=== PATIENT | male | born 1940 | race Caucasian/White ===

== ENCOUNTER → 2021-10-29 | Outpatient (CLI) | payer MEDICARE | LOC: RAD 14:30 → VAS 14:30 | DX: R01.1 Cardiac murmur, unspecified (principal) ==

== ENCOUNTER → 2022-01-04 | Outpatient (CLI) | payer MEDICARE ==
[2022-01-04 10:49] LABS: POTASSIUM 4.1 mmol/L (3.5-5.1)
[2022-01-04 10:50] LABS: CALCIUM 9.6 mg/dL (8.3-10.5)
== END ==
LOC: LAB 10:18
PROVIDERS: Internal Medicine Adult Congenital Heart Disease
DX: I50.23 Acute on chronic systolic (congestive) heart failure (principal)

== ENCOUNTER 2022-02-26 14:01 | Outpatient (RCR) | payer MEDICARE | END 2022-03-21 | disposition home or self-care (01) | LOC: CARDREHAB | DX: Z48.812 Encounter for surgical aftercare following surgery on the circulatory system (principal); Z95.2 Presence of prosthetic heart valve ==

== ENCOUNTER 2022-03-26 08:00 | Outpatient (RCR) | payer MEDICARE | END 2022-04-21 | disposition home or self-care (01) | LOC: CARDREHAB | DX: Z48.812 Encounter for surgical aftercare following surgery on the circulatory system (principal); Z95.2 Presence of prosthetic heart valve; Z95.5 Presence of coronary angioplasty implant and graft ==

== ENCOUNTER 2022-04-23 08:00 | Outpatient (RCR) | payer MEDICARE | END 2022-05-22 | disposition home or self-care (01) | LOC: CARDREHAB | DX: Z48.812 Encounter for surgical aftercare following surgery on the circulatory system (principal); Z95.2 Presence of prosthetic heart valve; Z95.5 Presence of coronary angioplasty implant and graft ==

== ENCOUNTER → 2022-06-05 | Day surgery (SDC) | payer MEDICARE | END | disposition home or self-care (01) | LOC: MSO 08:10 | DX: H25.13 Age-related nuclear cataract, bilateral (principal); I35.0 Nonrheumatic aortic (valve) stenosis; Z95.5 Presence of coronary angioplasty implant and graft | CPT/HCPCS: 00142; J0171; J3010; V2632 ==